=== PATIENT | female | born 1955 | race American Indian/Alaskan Native ===

== ENCOUNTER 2020-11-12 06:06 | Inpatient (IN) | payer OTHER ==
[2020-11-04 13:01] VITALS: BMI 28.4
[2020-11-12] MEDS ORDERED: BUPIVACAINE HCL 50 ML ONE ×2 (06:48→07:09)
[2020-11-12] MEDS ORDERED: SUCCINYLCHOLINE CHLORIDE 200 MG/10 ML SYRINGE ONE (06:56)
[2020-11-12] MEDS ORDERED: LIDOCAINE HCL/PF 2% SDV 5ML VIAL ONE (06:56)
[2020-11-12] MEDS ORDERED: PROPOFOL 20 ML ONE ×3 (06:56→10:12)
[2020-11-12] MEDS ORDERED: SODIUM CHLORIDE 0.9% P/F 10 ML VIAL IJ ONE ×2 (07:09→10:13)
[2020-11-12] MEDS ORDERED: MIDAZOLAM HCL 2 MG/2 ML SINGLE DOSE VIAL ONE ×2 (07:09→08:12)
[2020-11-12] MEDS ORDERED: BUPIVACAINE LIPOSOME/PF (EXPAREL) 266 MG/20 ML VIAL ONE (07:09)
[2020-11-12] MEDS ORDERED: VANCOMYCIN 1,000 MG VIAL (RESTRICTED TO ID ONLY) ONE (07:51)
[2020-11-12] MEDS ORDERED: ceFAZolin SODIUM 1 GM VIAL ONE (08:21)
[2020-11-12] MEDS ORDERED: ONDANSETRON 4 MG/2 ML VIAL ONE (09:05)
[2020-11-12] MEDS ORDERED: TRANEXAMIC ACID 1000 MG/10 ML VIAL ONE (09:05)
[2020-11-12] MEDS ORDERED: PHENYLEPHRINE HCL 10 MG/1 ML SINGLE DOSE VIAL ONE (09:05)
[2020-11-12] MEDS ORDERED: DEXAMETHASONE SOD PHOSPHATE 4 MG/1 ML VIAL ONE ×2 (09:05→10:44)
[2020-11-12] MEDS ORDERED: EPHEDRINE SULFATE/0.9% NACL/PF 50 MG/10 ML SYRINGE NR ONE (09:08)
[2020-11-12] MEDS ORDERED: ONDANSETRON 4 MG/2 ML VIAL IVPUSH PRN ×2 (10:07→11:30)
[2020-11-12] MEDS ORDERED: LACTATED RINGERS SOLUTION 1,000 ML IV SCH ×2 (10:15→11:30)
[2020-11-12] MEDS ORDERED: BENZOIN/ALOE VERA/STORAX/TOLU 58 ML BOTTLE ONE (10:23)
[2020-11-12] MEDS ORDERED: KETOROLAC TROMETHAMINE 30 MG/1 ML VIAL ONE (10:44)
[2020-11-12] MEDS ORDERED: MAG HYDROX/AL HYDROX/SIMETH 30 ML UNIT-DOSE CUP PO PRN (11:30)
[2020-11-12] MEDS ORDERED: MAGNESIUM HYDROX 2400MG/30ML ORAL SUSPENSION 30 ML CUP PO PRN (11:30)
[2020-11-12] MEDS: oxyCODONE HCL 5 MG TABLET PO PRN ×3 (14:32→21:07)
[2020-11-12] MEDS: CEFAZOLIN 2 GM/D5W 2 GM/50 ML ML IVPB SCH ×2 (17:02→23:22)
[2020-11-12] MEDS: KETOROLAC TROMETHAMINE 30 MG/1 ML VIAL IVPUSH PRN (19:05)
[2020-11-12] MEDS: ACETAMINOPHEN 1000 MG/100 ML VIAL (NON FORMULARY) IVPB PRN (19:53)
[2020-11-12] MEDS: SENNOSIDES/DOCUSATE COMBO (SENNA PLUS) TABLET (UD) PO SCH (21:08)
[2020-11-12] MEDS: ROSUVASTATIN CA 10 MG TABLET (FP) PO SCH (21:08)
[2020-11-12] MEDS: ASPIRIN COATED 81 MG TABLET.EC PO SCH (21:08)
[2020-11-13] MEDS: KETOROLAC TROMETHAMINE 30 MG/1 ML VIAL IVPUSH PRN (05:07)
[2020-11-13] MEDS: CEFAZOLIN 2 GM/D5W 2 GM/50 ML ML IVPB SCH (05:08)
[2020-11-13] MEDS: ACETAMINOPHEN 1000 MG/100 ML VIAL (NON FORMULARY) IVPB PRN (06:31)
[2020-11-13 08:29] LABS: HEMATOCRIT 32.8 % (32.4-45.2); HEMOGLOBIN 10.4 GM/dl (10.7-15.3); MCH 27.2 pg (25.7-33.7); MCHC 31.7 g/dl (32.0-36.0); MEAN CELL VOLUME 85.8 fl (80-96); MEAN PLT VOLUME 8.6 fl (7.5-11.1); PLATELET COUNT 298 10^3/uL (134-434); RBC 3.82 M/mm3 (3.60-5.2); RDW 13.2 % (11.6-15.6); WHITE BLOOD COUNT 11.4 K/mm3 (4.0-10.8)
[2020-11-13 08:33] LABS: CALCIUM 8.8 mg/dl (8.5-10); CREATININE 0.9 mg/dl (0.55-1.3)
[2020-11-13] MEDS: oxyCODONE HCL 5 MG TABLET PO PRN ×3 (08:52→20:00)
[2020-11-13] MEDS ORDERED: PATIENT'S OWN MEDICATION (NON-FORMULARY) (Olmesartan Medoxomil 20 MG Tablet) PO SCH (10:00)
[2020-11-13] MEDS: SENNOSIDES/DOCUSATE COMBO (SENNA PLUS) TABLET (UD) PO SCH ×2 (11:53→21:10)
[2020-11-13] MEDS: LOSARTAN POTASSIUM 50 MG TABLET PO SCH (11:54)
[2020-11-13] MEDS: ASPIRIN COATED 81 MG TABLET.EC PO SCH ×2 (11:54→21:10)
[2020-11-13] MEDS: PANTOPRAZOLE 40 MG TABLET PO SCH (11:54)
[2020-11-13] MEDS: ROSUVASTATIN CA 10 MG TABLET (FP) PO SCH (21:10)
[2020-11-14] MEDS: oxyCODONE HCL 5 MG TABLET PO PRN ×3 (00:32→10:46)
[2020-11-14 07:56] LABS: BASO % 0.7 % (0-2.0); EOS % 0.4 % (0-4.5); HEMATOCRIT 33.2 % (32.4-45.2); HEMOGLOBIN 10.4 GM/dl (10.7-15.3); LYMPH % 24.8 % (8-40); MCH 27.2 pg (25.7-33.7); MCHC 31.4 g/dl (32.0-36.0); MEAN CELL VOLUME 86.5 fl (80-96); MEAN PLT VOLUME 8.5 fl (7.5-11.1); NEUT % 68.1 % (42.8-82.8); PLATELET COUNT 315 10^3/uL (134-434); RBC 3.83 M/mm3 (3.60-5.2); RDW 13.2 % (11.6-15.6); WHITE BLOOD COUNT 11.6 K/mm3 (4.0-10.8)
[2020-11-14 08:08] LABS: ALBUMIN 2.8 g/dl (3.4-5.0); BILIRUBIN,TOTAL 0.5 mg/dl (0.2-1); CALCIUM 8.5 mg/dl (8.5-10); CREATININE 0.7 mg/dl (0.55-1.3); TOT PROT 6.1 g/dl (6.4-8.2)
[2020-11-14] MEDS: SENNOSIDES/DOCUSATE COMBO (SENNA PLUS) TABLET (UD) PO SCH (10:46)
[2020-11-14] MEDS: ASPIRIN COATED 81 MG TABLET.EC PO SCH (10:46)
[2020-11-14] MEDS: PANTOPRAZOLE 40 MG TABLET PO SCH (10:47)
[2020-11-14 10:51] VITALS: BP 116/55; PULSE 88; TEMP 98
[2020-11-14] MEDS: LOSARTAN POTASSIUM 50 MG TABLET PO SCH (11:03)
== END 2020-11-14 13:17 | disposition home or self-care (01) | DRG 470 ==
LOC: FM/S 06:06
PROVIDERS: ADMIT Orthopaedic Surgery Orthopaedic Surgery of the Spine; ATTEND Orthopaedic Surgery Orthopaedic Surgery of the Spine
PROC: 0SRC0J9 Replacement of Right Knee Joint with Synthetic Substitute, Cemented, Open Approach (ICD-10-PCS; principal; 2020-11-12 08:00)
DX: M17.11 Unilateral primary osteoarthritis, right knee (principal); I10 Essential (primary) hypertension; E78.5 Hyperlipidemia, unspecified; K21.9 Gastro-esophageal reflux disease without esophagitis
CPT/HCPCS: 36415; 73560-TC-RT-FY; 80048; 80053; 80061; 83036; 84443; 85025; 85027; 88304-TC; 88311-TC; 94760; 97010-GP; 97116-GP; C9803; J0131; U0003; U0005